=== PATIENT | male | born 1965 | race Two or more races ===

== ENCOUNTER 2016-06-11 02:39 | Emergency (ER) | payer BC ==
--- NOTE | 2016-06-11 02:51 | ED Physician Chart ---
Chief Complaint/HPI - Patient Information Date Seen:: 06/11/16 Time Seen:: 02:40 Chief Complaint:: laceration History of Present Illness:: 50-year-old male, brought in by friends with acute, moderate, laceration to right eyebrow area that happened about 10 minutes prior to arrival. He was at a local bar and has been drinking. Has associated mechanical fall. When he fell he was wearing eyeglasses and the eyeglasses brushed up against something and cut his right eyebrow. There was no breakage of the eyeglasses. He denies any loss of consciousness, syncope, nausea, acute vision changes, headache, neck pain, chest pain, palpitations, abdominal pain. Historian:: Patient Review:: Nurse's Note Reviewed Review of Systems - Review of Systems Other: Complete system review otherwise unremarkable except as noted in history of present illness. Past Medical History - Past Medical History Obtainable: Yes Past Medical History: DM Family History: Diabetes Melitus Social History: Non Smoker, Alcohol, No Drug Use, Employed Surgical History: None Psychiatricy History: None Medication: Reviewed Family Medical History - Family Member Mother History Unknown: Yes Ethnicity: Physical Exam - Physical Examination Other:: INITIAL VITAL SIGNS: Reviewed by me GENERAL: Alert and interactive. No acute distress HEAD: Head is normocephalic and there is a 1 cm laceration to the lateral right eyebrow. There is 2 cm abrasion at the corner of the lateral right eye. EYES: EOMI. PERRL. No scleral icterus. No conjunctival injection ENT: Moist mucous membranes. NECK: Supple. No masses. Full range of motion RESPIRATORY: No tachypnea. Clear breath sounds bilaterally. No wheezing, rales, or rhonchi CV: Regular rate and rhythm. No murmurs, rubs, or gallops ABDOMEN: Soft, non-distended, non-tender. No guarding. No rebound. No masses. EXTREMITIES: No deformity. No cyanosis. No edema. SKIN: Warm and dry. No obvious rashes. NEUROLOGIC: Alert and oriented. Face is symmetric. Speech is normal. Moves all extremities equally. Motor and sensory distally intact. Assessment - Procedures Procedures:: Laceration Repair with dermabond by me: Anesthesia: None Location: Right eyebrow Tendon/Joint/Nerves: No injury Foreign body: None detected after copious irrigation and exploration Technique: Tissue adhesive Complexity: No subcutaneous sutures/mucosal repair/edge excision Post Closure Length: 1.5 cm Patient's bleeding was easily controlled in the department and there is no indication of anemia. No evidence of compartment syndrome, neurologic injury, vascular injury, open joint, tendon laceration, or foreign body. Patient is appropriate for outpatient follow up. 48 hour wound check. Scar minimization instructions given. ED Septic Shock - . Is Septic Shock (SBP<90, OR Lactate>4 mmol\L) present?: No Reassessment (Disposition) - Reassessment Reassessment:: Patient suffered mechanical fall after drinking at a bar. Says he had tetanus updated within the last 2 years. At one 0.5 cm minor laceration to the right eyebrow which was Dermabond closed. We did clean the area prior to closure. Also had some abrasions which did not require any fair. Used bacitracin on the abrasions. Recommended follow-up wound check with primary care within 2-3 days. Return to ER precautions were given. Patient says he understands and agrees with the plan. Reassessment Condition:: Improved - Diagnosis Diagnosis:: Acute laceration to right eyebrow, 1.5 cm Acute mechanical fall Diabetes mellitus type 2 - Aftercare/Follow up Instructions Aftercare/Follow-Up Instructions:: Counseled pt regarding lab results/diagnosis & need follow up, Refer to Discharge Instructions - Patient Disposition Discharge/Transfer:: Home Condition at Disposition:: Improved ED Discharge Plan - Patient Disposition Admit/Discharge/Transfer: PT DISCHARGED HOME Condition at Disposition: Improved Instructions: Tissue Adhesive Wound Care Additional Instructions: keep wound clean and dry
[2016-06-11] MEDS ORDERED: Bacitracin pkt 1 gm Pkt TP STA (02:56)
[2016-06-11] MEDS ORDERED: Bacitracin pkt 1 gm Pkt TP ONE (02:57)
== END 2016-06-11 03:15 | disposition home or self-care (01) ==
LOC: ER 02:39
DX: S51.011A Laceration without foreign body of right elbow, initial encounter (principal); E11.9 Type 2 diabetes mellitus without complications; W19.XXXA Unspecified fall, initial encounter; Y93.89 Activity, other specified; Y92.89 Other specified places as the place of occurrence of the external cause; Y99.8 Other external cause status
CPT/HCPCS: 99283; 12011; Z7610; Z7502